=== PATIENT | male | born 1970 | race Caucasian/White ===

== ENCOUNTER 2020-11-19 10:01 | Outpatient (CLI) | payer BC ==
[~2020-11-19] VITALS: Ht 177.8 cm; Wt 122.7 kg
[2020-11-19] MEDS ORDERED: AMLO-251 PO (12:47)
[2020-11-19] MEDS ORDERED: LISI10TA25 PO (12:47)
[2020-11-19] MEDS ORDERED: FINA5TAB6 PO (12:47)
[2020-11-19] MEDS ORDERED: ATOR20TA66 PO (12:47)
[2020-11-19] MEDS ORDERED: TMSL.4C PO (12:47)
== END 2020-11-19 13:10 | disposition home or self-care (01) ==
LOC: PREOP 10:01
PROVIDERS: ATTEND Urology
DX: Z01.818 Encounter for other preprocedural examination (principal)

== ENCOUNTER 2020-11-25 05:54 | Day surgery (SDC) | payer BC ==
[~2020-11-25] VITALS: Ht 177.8 cm; Wt 122.7 kg
[2020-11-25] VITALS (13 sets, daily range): BP systolic 89–127; BP diastolic 47–75
[~2020-11-25 05:54] MED LIST: AMLO-251 PO; ATOR20TA66 PO; FINA5TAB6 PO; LISI10TA25 PO; TMSL.4C PO
[2020-11-25] MEDS ORDERED: cefTRIAXone FOR IV USE 1,000 MG in WATER (STERILE) FOR INJECTION 10 ML IV ONE (06:00)
[2020-11-25] MEDS: LACTATED RINGERS 1,000 ML IV PRN ×2 (06:25→07:55)
[2020-11-25] MEDS ORDERED: CLON0.5T4 PO (06:27)
[2020-11-25 06:48] LABS: BASOPHILS # (AUTO) 0.1 10^3/uL (0.0-0.1); BASOPHILS % (AUTO) 1 % (0-10); EOSINOPHILS # (AUTO) 0.2 10^3/uL (0.0-0.3); EOSINOPHILS % (AUTO) 3 % (0-10); HEMATOCRIT 40 % (40-54); HEMOGLOBIN 13.6 g/dL (13.3-17.7); LYMPHOCYTES # (AUTO) 2.3 10^3/uL (1.0-4.0); LYMPHOCYTES % (AUTO) 30 % (12-44); MEAN CORPUSCULAR HEMOGLOBIN 30 pg (25-34); MEAN CORPUSCULAR HGB CONC 34 g/dL (32-36); MEAN CORPUSCULAR VOLUME 88 fL (80-99); MEAN PLATELET VOLUME 9.3 fL (9.0-12.2); MONOCYTES # (AUTO) 1.2 10^3/uL (0.0-1.0); MONOCYTES % (AUTO) 15 % (0-12); NEUTROPHILS # (AUTO) 3.9 10^3/uL (1.8-7.8); NEUTROPHILS % (AUTO) 51 % (42-75); PLATELET COUNT 262 10^3/uL (130-400); WHITE BLOOD COUNT 7.7 10^3/uL (4.3-11.0)
[2020-11-25] MEDS ORDERED: BUPIVACAINE 0.5% 30 ML (SENSORCAINE) VIAL ONE (06:56)
[2020-11-25] MEDS ORDERED: fentaNYL INJ 100 MCG/2 ML AMP ONE (06:58)
[2020-11-25] MEDS ORDERED: MIDAZOLAM 2 MG/2 ML (VERSED) VIAL ONE ×2 (07:01→08:04)
--- NOTE | 2020-11-25 07:51 | Progress Note-Pre Operative ---
Pre-Operative Progress Note H&P Reviewed The H&P was reviewed, patient examined and no changes noted. Date Seen by Provider: Nov 25, 2020 Time Seen by Provider: 07:51 Date H&P Reviewed: Nov 25, 2020 Time H&P Reviewed: 07:51 Pre-Operative Diagnosis: BPH WITH PROSTATISM ANG ANDERS MD Nov 25, 2020 07:51
--- NOTE | 2020-11-25 07:54 | Progress Note-Post Operative ---
Post-Operative Progess Note Surgeon (s)/Homicide Squad Lieutenant (s) Surgeon ANG ANDERS MD Homicide Squad Lieutenant: NONE Pre-Operative Diagnosis BPH WITH PROSTATISM Post-Operative Diagnosis SAME Procedure & Operative Findings Date of Procedure 11/25/20 Procedure Performed/Findings TURP Anesthesia Type SPINAL Estimated Blood Loss Estimated blood loss (mL): LESS THAN 50 CC Specimens/Packing Specimens Removed PROSTATE CHIP Packing: NONE ANG ANDERS MD Nov 25, 2020 07:54
[2020-11-25] MEDS ORDERED: PROPOFOL INJECTION 50 ML IV ONE (08:41)
[2020-11-25] MEDS: LACTATED RINGERS 1,000 ML IV SCH ×3 (09:06→14:33)
[2020-11-25] MEDS ORDERED: BELLADONNA ALK/OPIUM (B & O) 30 MG SUPP PR PRN (09:15)
[2020-11-25] MEDS ORDERED: MILK OF MAGNESIA 400 MG/5 ML 30 ML UDC PO PRN (09:15)
[2020-11-25] MEDS ORDERED: clonazePAM 0.5 MG (KlonoPIN) TAB PO PRN (09:15)
[2020-11-25] MEDS ORDERED: diphenhydrAMINE 25 MG TAB (BENADRYL) PO PRN (10:45)
--- NOTE | 2020-11-25 15:33 | OPERATIVE REPORT ---
DATE OF SERVICE: 11/25/2020 PREOPERATIVE DIAGNOSIS: Benign prostatic hyperplasia with prostatism. POSTOPERATIVE DIAGNOSIS: Benign prostatic hyperplasia with prostatism. OPERATION PERFORMED: Transurethral resection of the prostate. SURGEON: Ang Anders MD ANESTHESIA: Spinal. COMPLICATIONS: None. DESCRIPTION OF PROCEDURE: Under satisfactory spinal anesthesia, the patient in lithotomy position, genitalia were prepped and draped in the usual sterile fashion. Urethra was dilated with Salvador sound to accommodate a 27-Syriac Shea resectoscope. Again, visualized a trilobar enlargement of the prostate. We went ahead and resected the median lobe, which was completely leveled. Then, the roof from 11 to 1 o'clock position, then the lateral lobe and finally the apical and floor. Resection was adequate and hemostasis satisfactory. Prostatic chips were evacuated and a 22-Syriac 3-way 30 mL balloon catheter was inserted in the bladder, the balloon inflated to 40 mL, connected to continuous bladder irrigation with traction, the return of which was clear. ESTIMATED BLOOD LOSS: Less than 50 mL, none of which was replaced. CONDITION: The patient tolerated the procedure and anesthesia well and was sent to recovery room in stable condition. Job ID: [id number] DocumentID: [id number] Dictated Date: 11/25/2020 09:17:20 Dimethylaniline Sulfator Operator Date: 11/25/2020 15:32:56 Dictated By: ANG ANDERS MD
[2020-11-25] MEDS: DOCUSATE SODIUM 100 MG (COLACE) CAP PO SCH (20:11)
[2020-11-25] MEDS ORDERED: polyethylene glycoL POWDER 17 GM (MIRALAX) PACK PO SCH (21:00)
[2020-11-26] MEDS: LACTATED RINGERS 1,000 ML IV SCH ×3 (00:30→07:54)
[2020-11-26 04:00] VITALS: BP 117/75
--- NOTE | 2020-11-26 07:06 | Anesthesia-General Post-Op ---
General Patient Condition Mental Status/LOC: Same as Preop Cardiovascular: Satisfactory Nausea/Vomiting: Absent Respiratory: Satisfactory Pain: Controlled Complications: Absent Post Op Complications Complications None Follow Up Care/Instructions Patient Instructions None needed. Anesthesia/Patient Condition Patient Condition Patient is doing well, no complaints, stable vital signs, no apparent adverse anesthesia problems. No complications reported per nursing. D/C home per [facility] [place] Criteria: Yes ANJU LOCKE CRNA Nov 26, 2020 07:06
[2020-11-26] MEDS: DOCUSATE SODIUM 100 MG (COLACE) CAP PO SCH (07:52)
[2020-11-26 08:00] VITALS: BP 122/74
[2020-11-26] MEDS ORDERED: amLODIPine 10 MG (NORVASC) TAB PO SCH (09:00)
[2020-11-26] MEDS ORDERED: lisINopril 10 MG (PRINIVIL) TABLET PO SCH (09:00)
--- NOTE | 2020-11-26 09:48 | Progress Note - Urology ---
Progress Note-Urology Progress Notes/Assess & Plan Progress/Assessment & Plan DOING AND FEELING WELL. SOME CONSTIPATION. URINE CRYSTAL CLEAR. PLAN TOV Final Diagnosis BPH WITH PROSTATISM ANG ANDERS MD Nov 26, 2020 09:48
[2020-11-26] MEDS ORDERED: MILK OF MAGNESIA 400 MG/5 ML 30 ML UDC PO ONE (10:00)
[2020-11-26] MEDS ORDERED: SULF1TAB35 PO (12:28)
[2020-11-26] MEDS ORDERED: PHEN-639 PO (12:28)
[2020-11-26 12:47] VITALS: BP 122/74
== END 2020-11-26 12:51 | disposition home or self-care (01) ==
LOC: SDC 05:54 → 4TH 10:25 → SDC 11-26 12:51
PROVIDERS: ATTEND Urology
DX: N40.0 Benign prostatic hyperplasia without lower urinary tract symptoms (principal); I10 Essential (primary) hypertension; J44.9 Chronic obstructive pulmonary disease, unspecified; Z79.899 Other long term (current) drug therapy
CPT/HCPCS: 36415; 85025; 86850; 86900; 86901; 87081; 88305; 94664